=== PATIENT | male | born 1950 | race Hispanic/Latino ===

== ENCOUNTER 2023-05-28 10:27 | Emergency (ER) | payer MEDICARE ==
[~2023-05-28] VITALS: Ht 154.9 cm; Wt 73.0 kg
[2023-05-28 10:37] VITALS: O2SAT 99
[2023-05-28] MEDS ORDERED: FLOMAX0.4 MG PO (11:03)
[2023-05-28] MEDS ORDERED: BACTRIM 400-801 EACH PO (11:06)
== END 2023-05-28 11:15 | disposition home or self-care (01) ==
LOC: FSED 10:33
DX: Z46.6 Encounter for fitting and adjustment of urinary device (principal); N39.0 Urinary tract infection, site not specified
CPT/HCPCS: 81003; 87086; 87186; 99283